=== PATIENT | female | born 1975 | race Caucasian/White ===

== ENCOUNTER → 2023-12-25 07:26 | Outpatient (REF) | payer OTHER, SELFPAY | LOC: WDC 07:26 | PROVIDERS: ATTENDING PHYSICIAN Nurse Practitioner | DX: Z12.31 Encounter for screening mammogram for malignant neoplasm of breast (principal) | CPT/HCPCS: 77063; 77067 ==

== ENCOUNTER → 2024-02-05 12:56 | Outpatient (REF) | payer OTHER, SELFPAY | LOC: WDC 12:56 | PROVIDERS: ATTENDING PHYSICIAN Internal Medicine; FAMILY PHYSICIAN Nurse Practitioner | DX: R92.2 Inconclusive mammogram (principal); R92.30 Dense breasts, unspecified | CPT/HCPCS: 76641 ==

== ENCOUNTER 2024-07-15 05:52 | Day surgery (SDC) | payer OTHER, SELFPAY ==
[2024-07-14 21:44] VITALS: BP 148/80
[2024-07-14 22:06] LABS: % Basophils 0.6 % (0-2); % Eosinophils 1.8 % (0-6); % Immature Granulocytes 0.5 % (0-0.5); % Lymphocytes 13.5 % (20.5-51.1); % Monocytes 5.2 % (1.7-9.3); % Neutrophils 78.4 % (42.2-75.2); Absolute Basophils 0.1 10^3/uL (0-0.2); Absolute Eosinophils 0.4 10^3/uL (0-0.7); Absolute Immature Granulocytes 0.1 10^3/uL (0-0.05); Absolute Lymphocytes 2.7 10^3/uL (1.2-3.4); Absolute Neutrophils 15.4 10^3/uL (1.4-6.5); Hematocrit 41.4 % (37.0-47.0); Mean Corp Hgb Conc. 33.8 g/dL (33.0-37.0); Mean Corpuscular Hgb 28.9 pg (27.0-31.0); Mean Corpuscular Volume 85.4 fL (81.0-99.0); Mean Platelet Volume 8.9 fL (7.4-10.4); Nucleated Red Blood Cells % 0 %; Platelet Count 322 10^3/uL (130-400); Red Blood Cell Count 4.85 10^6/uL (4.20-5.40); White Blood Cell Count 19.6 10^3/uL (4.8-10.8)
[2024-07-14 22:22] LABS: ALT (SGPT) 46 U/L (0-35); AST (SGOT) 40 U/L (14-36); Albumin 4.4 g/dl (3.5-5.0); Alkaline Phosphatase 80 U/L (38-126); Blood Urea Nitrogen 15 mg/dl (7-17); Carbon Dioxide 29 mmol/L (22-30); Chloride 98 mmol/L (98-107); Glucose 118 mg/dl (70-99); Potassium 3.8 mmol/L (3.5-5.1); Sodium 137 mmol/L (135-145); Total Bilirubin 0.4 mg/dl (0.2-1.3); Total Protein 6.9 g/dl (6.3-8.2); eGFR > 60.00
[2024-07-15] VITALS (12 sets, daily range): BP systolic 108–139; BP diastolic 59–83; BMI 33.8
--- NOTE | 2024-07-15 00:14 | ED.GENMED ---
History of Present Illness
General
Chief Complaint: Abdominal Pain
Source: patient
Time Seen by Provider: 07/14/24 23:37
History of Present Illness
History of Present Illness:
48-year-old female presents to the emergency room complaining of abdominal pain. The pain is located in her lower abdomen. It started this evening. Patient feels like it started fairly suddenly. She had taken the doxycycline earlier which was
prescribed for sinusitis. Patient has had nasal congestion, malaise for the past several days. She was negative for COVID and flu and therefore her doctor prescribed this antibiotic for suspected sinusitis. Patient denies any diarrhea or
constipation. She is nauseous but has not vomited. She has had a cholecystectomy in the past.
Past History
Past History
ED Past Medical History: Psychiatric (depression) and Other (Known gallstones)
ED Past Surgical History: Cholecystectomy
Social History
Tobacco: Non-smoker
Alcohol: Occasional
Drug: None
Personal:
Living: with family
Employment: Employed
Family History
Family History: Other (Noncontributory)
Phy Exam
Physical Exam
Physical Exam:
General: Awake, Alert, Oriented X3. No acute distress.
Vitals: unremarkable
Head: Atraumatic
Eyes: Pupils equal, EOMI
Throat: Airway intact, no exudates
Neck: Trachea midline
Lungs: Clear and equal b/l
Heart: Regular rate, no murmurs
Abd: Soft, tenderness to palpation lower abdomen, no pulsatile mass
Neuro: Nonfocal
Skin: Warm, dry, no rash
Extremities: pulses equal b/l, no edema
Course
Orders/Labs/Results
Orders:
Orders
07/14/24 21:57
CMP [Comprehensive Metabolic Panel] Urgent
Complete Blood Count/With Diff Urgent
07/15/24 00:13
0.9% Sodium Chloride 1000 ml [Nss] 1,000 ml IV BOLUS
Ketorolac [Toradol] 15 mg IV NOW STA
07/15/24 00:14
CT Abd/Pel (IV only)-DH only Urgent
Comment:
Reason For Exam: lower abd pain
07/15/24 00:20
Urinalysis Reflex To Culture Urgent
Date Specimen was Collected: 07/15/24
Time Specimen was Collected: 00:16
Urine Microscopic Reflex Cult Urgent
Urine Culture Urgent
MING Source: U
Specimen Description:
Date Specimen was Collected: 07/15/24
Time Specimen was Collected: 00:16
07/15/24 03:21
CefTRIAXone [Rocephin] 1,000 mg IV NOW STA
MetroNIDAZOLE 500 MG/100 ML [Flagyl 500 mg] 100 ml IV NOW
07/15/24 03:44
Sterile Water [Sterile Water For Injection] 10 ml .ROUTE .STK-MED ONE
07/15/24 05:20
Admit/Transfer Patient As Directed
Co-Sign Provider:
Level of Care: Inpatient admission
Assign to:: Medical/Surgical
Physician / Group: Surgical services/Dr. Yanez
Diagnosis: Acute Appendicitis
Reason for Hospitalization: Acute appendicitis
Expected length of stay greater than two midnights?: Yes
ELOS- Estimated Length of Stay in days: 2
I certify the patient meets the requirements for IP care: Yes
07/15/24 05:21
Code Status As Directed
Resuscitation Status: Full Code
07/15/24 05:41
PRN Pain Medication Management As Directed
May give lesser potent ordered pain med per pt: Yes
preference::
Protocol:: Medication orders for pain may be administered in a
manner that supports deferring to patient preference
when the pt is:
- Requesting an ordered lesser potent pain medication.
Least to most potent pain medications are defined
as: acetaminophen < NSAID < tramadol < opioids
(morphine, oxycodone, hydromorphone).
- Requesting a lesser dose of the same medication IF
ORDERED.
- Requesting a less intrusive route of administration
if both routes are prescribed by the provider (PO <
IV).
07/15/24 05:46
Morphine Sulfate 2 mg IV Q2HPRN PRN
07/15/24 06:00
Flush (0.9% Sodium Chloride) [Flush (Nss)] See Dose Instructions IV PER PROTOCOL
Abnormal Lab Results
07/14/24 07/15/24
21:57 00:20
WBC 19.6 H 10^3/uL
(4.8-10.8)
Abs Immat Gran (auto) 0.1 H 10^3/uL
(0-0.05)
Absolute Neuts (auto) 15.4 H 10^3/uL
(1.4-6.5)
Absolute Monos (auto) 1.0 H 10^3/uL
(0.1-0.6)
Neutrophils % 78.4 H %
(42.2-75.2)
Lymphocytes % 13.5 L %
(20.5-51.1)
Glucose 118 H mg/dl
(70-99)
AST 40 H U/L
(14-36)
ALT 46 H U/L
(0-35)
Ur Occult Blood Reflex Trace A
(Negative)
Urine RBC 3-6 A /HPF
(0-2)
Urine Bacteria (Reflex) Moderate A
(Negative)
07/14/24 21:57
07/14/24 21:57
Vital Signs
Initial and Last Documented VS:
Initial Vital Signs
Temp Pulse Resp BP Pulse Ox
98 F 86 24 148/80 99
07/14/24 21:44 07/14/24 21:44 07/14/24 21:44 07/14/24 21:44 07/14/24 21:44
Last Documented Vital Signs
Temp Pulse Resp BP Pulse Ox
98 F 86 16 120/74 96
07/14/24 21:44 07/15/24 05:45 07/15/24 05:45 07/15/24 05:45 07/15/24 05:45
MDM/Problems Addressed
Differential Diagnosis Includes:
Acute appendicitis, kidney stone, diverticulitis
MDM/Problems Addressed:
Patient presents with abdominal pain. Workup shows significantly elevated white blood cell count at 19.6. AST and ALT are mildly elevated. CT shows acute appendicitis. There is also some stranding about the cecum which may be related to the
appendicitis or could represent neoplasm. Patient will be admitted to surgery. Antibiotics initiated. Given patient's allergy to penicillin we started ceftriaxone and Flagyl.
*Radiology
Radiology exam reviewed: radiology read reviewed
*Pulse Oximetry
Patient hypoxic: no
*Critical Care Note
Total Time (30-74mins, 75-104mins- exclusive of procedures): Not Applicable
ED Attending Note
-
Portions of this chart may have been created with voice recognition software.� Occasional wrong word or��sound alike� substitutions may have occurred due to the inherent limitations of voice recognition software.
Discharge Plan
Departure
Patient Disposition: Admit
Date of Disposition: 07/15/24
Time of Disposition: 03:23
Admit to: Med/Surg
Presentation/result/management discussed w/ accepting MD/DO: Hospitalist
Condition: Fair
Discharge Problem:
Appendicitis
Interventions
Interventions:
*Risk Screen - Suicide Last Done: 07/14/24 21:44
*General Assessment Last Done: 07/15/24 00:00
*Neglect/Abuse Screening Last Done: 07/14/24 21:44
ED- Fall Risk Assessment Last Done: 07/15/24 00:00
*ED COVID-19 Vaccine History Last Done: 07/15/24 00:00
KH-Gijtpx-Tnymecgedt Assessment Last Done: 07/15/24 00:00
ED-EENT Assessment Last Done: 07/15/24 00:00
ED- Pulmonary Assessment Last Done: 07/15/24 00:00
ED-Skin Assessment Last Done: 07/15/24 00:00
[2024-07-15] MEDS: NSS 1000 IV ×3 (00:26→20:32)
[2024-07-15] MEDS: TORADOL 15 MG IV (00:26)
[2024-07-15 00:36] LABS: Urine Albumin Negative (Neg - Trace); Urine Bilirubin Negative (Negative); Urine Character Clear (Clear); Urine Color Yellow; Urine Glucose Negative (Negative); Urine Ketone Negative (Negative); Urine Leukocyte Negative (Negative); Urine Nitrite Negative (Negative); Urine Occult Blood Trace (Negative); Urine Urobilinogen Negative (Neg - 1+)
[2024-07-15 02:00] LABS: Urine Bacteria Moderate (Negative); Urine Squamous Cell >30 /LPF (Few); Urine White Cell 0-2 /HPF (0-5)
[2024-07-15 02:01] LABS: Urine Mucus Many
--- NOTE | 2024-07-15 02:39 | EDRN ---
Dr. Zhang in to go over results with patient and plan to be admitted to the hospital
[2024-07-15] MEDS: ROCEPHIN 1000 MG IV (03:45)
[2024-07-15] MEDS: FLAGYL 500 MG 100 IV ×3 (03:45→20:32)
--- NOTE | 2024-07-15 04:52 | HPS.HSE ---
Addendum entered and electronically signed by Cruzito Yanez MD 07/15/24 08:06:
Patient seen and examined. See separate note for details; this note should be converted to a history and physical. Plan for laparoscopic appendectomy.
Original Note:
Family Physician
-
Family Physician: Carol Hemphill
Chief Complaint
-
Abdominal pain
History of Present Illness
Patient is a 48-year-old female presents to the emergency room complaining of lower abdominal pain. It started this evening, after dinner around 18:30. Patient feels like it started fairly suddenly. She had taken the doxycycline earlier which was
prescribed for sinusitis. Patient has had nasal congestion, malaise for the past several days. She went to an Urgent care, was negative for COVID and flu and therefore her doctor prescribed this antibiotic for suspected sinusitis. Patient denies
any diarrhea or constipation. She is nauseous but has not vomited. She has had a cholecystectomy in the past.
In the emergency department, labs showed leukocytosis, WBC 19.6, BMP unremarkable. UA showed trace occult blood reflex and moderate bacteria.Patient received 1L NSS bolus, and was started on IV antibiotics Ceftriaxone 1 g IV x 1 and metronidazole
500 mg IV x [address]/Pelvis (IV only)
Radiology exam reviewed: radiology read reviewed (CT night hawk) -
Moderate wall thickeining of the base of appedix and the adjacent cecum, which may represent an acute appendicitis. The cecal wall thickening may be reactive to the appendicitis. Cannot exclude an dunderlying mass or cecal colitis. There is a small
amount of surrounding fat stranding. No free air or abscess. May consider follow up with GI to exclude an underlying cecal pathology.
Patient is being admitted to Surgical Services, Dr. Yanez.
Medical History
Past Medical History
Past Medical History: Reports Psychiatric (Depression) and Other (Gallstones)
Past Surgical History: Reports Cholecystectomy (03/2013) and Gynocological (Hysterectomy, 04/2022)
Social History
Tobacco: Non-smoker
Alcohol: None
Drug: None
Personal:
Living: With Family
Employment: Employed
Family History
Family History: Other (Noncontributory)
Allergies / Home Medications
Allergies reflects when Allergies were last updated in [facility].
Home Medications with original date entered in [facility]
Allergy/Medication List:
Patient Allergies
Allergy/AdvReac Type Severity Reaction Status Date / Time
Penicillins Allergy Unknown Verified 07/14/24 21:47
Home Medications
�Medication �Instructions �Recorded
escitalopram oxalate 10 mg tablet 10 mg PO DAILY 07/15/24
(Lexapro)
Review of Systems
-
History Source: Patient
EENT: Reports No Symptoms
Respiratory: Reports No Symptoms
Cardiac: Reports No Symptoms
Abdomen/GI: Reports Abdominal Pain (lower abdominal pain) and Nausea
: Reports No Symptoms
Musculoskeletal: Reports No Symptoms
Skin: Reports No Symptoms
Neurological: Reports No Symptoms
Psych: Reports Calm
Physical Exam
Vital Signs
Vital Signs
Temp Pulse Resp BP Pulse Ox
98 F 98 16 139/80 98
07/14/24 21:44 07/15/24 00:00 07/15/24 00:00 07/15/24 00:00 07/15/24 00:00
Physical Exam
General: Well Developed, Well Nourished and Appears in Distress (mild distress)
HEENT: NormoCephalic and PERRLA
Respiratory: Clear
Cardiac: S1/S2 and Regular Rhythm; No Murmur
GI: Soft and Tender (right lower quadrant pain)
Skin: Warm and Dry; No Rash or Jaundice
Neuro: AO x 3
Psych: Calm
Laboratory Results
-
07/14/24 21:57
07/14/24 21:57
Laboratory Results
Total Bilirubin 0.4 mg/dl (0.2-1.3) 07/14/24 21:57
AST 40 U/L (14-36) H 07/14/24 21:57
ALT 46 U/L (0-35) H 07/14/24 21:57
Alkaline Phosphatase 80 U/L (38-126) 07/14/24 21:57
Data Reviewed
-
CT Scan: Report Reviewed by me
Lab Data: Labs Reviewed by me and Discussed with Physician
Impression/Plan
-
IMPRESSION:
Patient is a 48-year-old female presents to the emergency room complaining of lower abdominal pain.
PLAN:
Acute Appendicitis/
Abdominal pain
-Admit to surgical services, accepted by Dr. Yanez
-Patient started on IV antibiotics: Metronidazole 500 mg IV and Ceftriaxone 1 g IV
-Pain medication: Ordered Morphine
-Zofran for nausea/vomiting
-NPO, IV fluids ordered
PMHx:
Anxiety - Lexapro
DVT Prophylaxis: SCD's
Code status: Full code
[2024-07-15] MEDS: MORPHINE SULFATE 2 MG IV ×2 (05:48→09:53)
--- NOTE | 2024-07-15 07:14 | PTCARENOTE ---
PT a 48 y/o F dx Acute Appendicitis arrived from ED at 06:38 to 2S. PMH Umbical Hernia (repaired 2012), Gallstones ([place] 2012), Impaired vision, Psoriasis, Covid, Depression & pt had Hysterectomy in 2021. Pt AOx3, bed in a low position, call
light in reach.
--- NOTE | 2024-07-15 07:58 | CON.GS ---
Addendum entered and electronically signed by Cruzito Yanez MD 07/15/24 08:07:
Of note, patient has had a prodromal symptom of a URI which prompted evaluation at a urgent care several days ago. She is currently on doxycycline for treatment of potential sinusitis.
Original Note:
Medical History
-
Chief Complaint: Abdominal pain
History of Present Illness:
Patient is a 48 yo F with a PMH of depression/anxiety, obesity, s/p laparoscopic cholecystectomy and open primary umbilical hernia repair and s/p hysterectomy who presents with 12 to 24 hours of RLQ abdominal pain. Ms. Hernandez states that her
abdominal discomfort began yesterday evening. Acute onset of pain which worsened throughout the evening prompting presentation to the ED. No fevers or chills. No nausea or vomiting. No significant fluctuations in bowel habits including mucousy
or bloody stools. She denies any chronic GI issues. No personal or family history of IBD or colon cancer. She has had a colonoscopy 2 years ago at [facility] which was reportedly normal. Currently she notes mild improvement but still
continues with RLQ abdominal pain.
Past Medical History
Past Medical History: Psychiatric (Depression/anxiety)
Past Surgical History: Cholecystectomy and Gynecological (Hysterectomy)
Social History
Tobacco: Non-Smoker
Alcohol: None
Drug: None
Personal:
Living: With Family
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
Family History
Family History: Reviewed & Noncontributory
Allergies / Home Medications
Allergy/AdvReac Type Severity Reaction Status Date / Time
Penicillins Allergy Unknown Verified 07/14/24 21:47
�Medication �Instructions �Recorded �Confirmed �Type
escitalopram oxalate 10 mg tablet 10 mg PO DAILY 07/15/24 07/15/24 History
(Lexapro)
Review of Systems
-
A 10 point review of systems was completed, and was negative except as per HPI.
Physical Exam
Vital Signs
Temp Pulse Resp BP Pulse Ox
98.3 F 81 16 113/70 95
07/15/24 07:40 07/15/24 07:40 07/15/24 07:40 07/15/24 07:40 07/15/24 07:40
07/14/24 07/15/24 07/16/24
06:59 06:59 06:59
Actual Weight 95 kg
Body Mass Index (BMI) 33.8
Lab Results
WBC 19.6 10^3/uL (4.8-10.8) H 07/14/24 21:57
Hgb 14.0 g/dL (12.0-16.0) 07/14/24 21:57
Hct 41.4 % (37.0-47.0) 07/14/24 21:57
Plt Count 322 10^3/uL (130-400) 07/14/24 21:57
Abs Immat Gran (auto) 0.1 10^3/uL (0-0.05) H 07/14/24 21:57
Neutrophils % 78.4 % (42.2-75.2) H 07/14/24 21:57
Physical Exam
General: Well Developed, Well Nourished and No Apparent Distress
HEENT: Normocephalic and Anicteric
Respiratory: Non Labored Respirations
Cardiac: Regular Rhythm
GI: Soft, Non Distended, Tender (RLQ and suprapubic region), Obese and Other (No diffuse peritonitis)
Musculoskeletal: No Edema
Skin: Warm and Dry
Neuro: Nonfocal/Grossly Intact
Data Reviewed
-
CT Scan: Image Personally Visualized and interpreted
Labs: Labs Reviewed by me
Old Records: Reviewed
Assessment / Plan
-
Patient is a 48 yo F p/w acute appendicitis
The natural history and pathophysiology of appendicitis was discussed. Anatomy was reviewed. CT scan imaging as a relates to her appendix was reviewed. Specifically, we discussed the radiographic findings of a more thickened colon and TI which
may complicate her surgery. Options for management including medical management with antibiotics versus surgical management with appendectomy were considered and discussed. The pros and cons of both approaches was discussed. Specifically, we
discussed failure of medical management of future episodes of appendicitis versus surgical risks. Patient would like to proceed with appendectomy.
Plan for a laparoscopic possible open appendectomy. The procedure itself, as well as the risks, benefits, and alternatives was discussed. Specifically, we discussed the risks of bleeding, infection, injury to surrounding structures, need for a
partial seek ectomy or potentially open procedure, and general anesthetic complications. Typical postprocedure recovery was discussed. All questions answered. Consent signed.
-- Laparoscopic appendectomy
-- NPO, IVF
-- Abx: Levo, Falgyl
-- pain control: Tylenol and IV Morphine PRN
--- NOTE | 2024-07-15 08:06 | W.SUR.PREOP ---
Pre-Operative Surgical Note
-
I have examined this patient prior to the performance of the scheduled procedure.
The patient's condition is unchanged from the time of the current History and
Physical and the patient is able to undergo the scheduled procedure.
[2024-07-15] MEDS: LEXAPRO 10 MG PO (08:16)
[2024-07-15] MEDS: TYLENOL 650 MG PO ×3 (08:16→20:34)
[2024-07-15] MEDS: LEVAQUIN 100 IV (08:17)
[2024-07-15 09:46] LABS: Hematocrit 36.5 % (37.0-47.0); Hemoglobin 12.7 g/dL (12.0-16.0); Mean Corp Hgb Conc. 34.8 g/dL (33.0-37.0); Mean Corpuscular Hgb 29.5 pg (27.0-31.0); Mean Corpuscular Volume 84.9 fL (81.0-99.0); Mean Platelet Volume 9.2 fL (7.4-10.4); Platelet Count 276 10^3/uL (130-400)
[2024-07-15 10:04] LABS: Blood Urea Nitrogen 11 mg/dl (7-17); Calcium 8.4 mg/dl (8.4-10.2); Carbon Dioxide 27 mmol/L (22-30); Chloride 102 mmol/L (98-107); Estimated Creatinine Clearance > 125 ml/min; Glucose 101 mg/dl (70-99); Potassium 3.6 mmol/L (3.5-5.1); Sodium 138 mmol/L (135-145); eGFR > 60.00
--- NOTE | 2024-07-15 11:18 | CM ---
Met with pt and her at bedside
Pt reports she lives with her and 2 daughters (ages - 12 & 15) in a 2 story home;2 steps to enter, 12 steps to 2nd fl. + 1/2 bath on FF
Independent, active, drives
DME - none
SNF/HH - no past hx
Has ride at discharge
PCP - Carol Hemphill
Pharm - [facility] - [place]
Pharm - anticipate home no needs when medically ready
[2024-07-15] MEDS: TYLENOL PO ×2 (11:51→23:58)
--- NOTE | 2024-07-15 13:51 | W.IMMPOSTOP ---
Surgical Immed Post Op Note
-
Primary Surgeon: Beau
Assisting Surgeon: KAVON Bryant
Pre-op Diagnosis: Acute appendicitis
Post-op Diagnosis: Acute appendicitis
Procedure Performed: Laparoscopic appendectomy
Anesthesia Type: General
Specimen / Cultures:
1. Appendix
Estimated Blood Loss: 7 cc
Complications: None
Operative Findings:
1. Dilated and inflamed appendix without evidence of perforation, turbid reactive fluid
2. Palpable firmness within cecum, no clear cancerous mass
3. Mesentery taken with Voyant, base with purple load stapler with small portion of cecum (staple line intact)
[2024-07-15] MEDS: SUBLIMAZE 50 MCG IV (14:49)
--- NOTE | 2024-07-15 15:09 | PTCARENOTE ---
Patient returned to her room from the PACU post laparoscopic appendectomy.She reports her pain at a 6 out of 10.She received pain medication right before she came back to her room.Vital signs are stable. All incisions are open to air without
drainage.The patient is in her bed with the call flores in reach.Her is at the bedside.
[2024-07-15] MEDS: LOVENOX 40 MG SC (17:15)
[2024-07-15] MEDS: ROXICODONE 5 MG PO (20:33)
--- NOTE | 2024-07-16 02:17 | DOWNTIME ---
There was a [employer] Downtime on 07/16/2024 from 0100 to 07/16/2023 at 0205 . Downtime documentation of patient's care, including medication administrations, has been reconciled in the electronic record per guidelines. Refer to the
patient's paper chart under the miscellaneous tab to see printed paper medication records and downtime forms.
[2024-07-16] MEDS: TYLENOL 650 MG PO ×2 (05:20→08:16)
[2024-07-16] MEDS: FLAGYL 500 MG 100 IV (05:20)
[2024-07-16 07:09] VITALS: BP 127/83
[2024-07-16] MEDS: LEXAPRO 10 MG PO (08:18)
[2024-07-16] MEDS: LEVAQUIN 100 IV (08:19)
[2024-07-16] MEDS: TORADOL 10 MG IV (08:26)
[2024-07-16 08:47] LABS: ALT (SGPT) 91 U/L (0-35); AST (SGOT) 67 U/L (14-36); Albumin 3.4 g/dl (3.5-5.0); Alkaline Phosphatase 104 U/L (38-126); Blood Urea Nitrogen 9 mg/dl (7-17); Calcium 8.4 mg/dl (8.4-10.2); Carbon Dioxide 26 mmol/L (22-30); Chloride 103 mmol/L (98-107); Estimated Creatinine Clearance > 125 ml/min; Glucose 113 mg/dl (70-99); Potassium 3.7 mmol/L (3.5-5.1); Sodium 135 mmol/L (135-145); Total Bilirubin 0.5 mg/dl (0.2-1.3); Total Protein 5.8 g/dl (6.3-8.2); eGFR > 60.00
--- NOTE | 2024-07-16 10:27 | CM ---
Chart reviewed. Met with pt
Poss d/c later today per pt
Has ride at discharge
Plan - anticipate home no needs
[2024-07-16 11:22] VITALS: BP 136/83
[2024-07-16] MEDS: NSS IV (11:36)
--- NOTE | 2024-07-16 11:39 | W.PN.GS2 ---
Today's Communication / Plan
-
-- DC today if tolerating diet
Assessment / Plan
-
Patient is a 48 yo F p/w acute appendicitis POD#1 s/p laparoscopic appendectomy
AVSS
Recovering well. No postoperative concerns. Operative findings reviewed, will need to follow-up on pathology.
-- Regular diet
-- Pain control: Tylenol, Toradol, Oxycodone
-- Abx: Zosyn, plan for 4 days abx (Cipro/Flagyl on DC)
-- Home meds
-- DVT: Lovenox
-- DC today
Subjective Data
-
Date of Service: July 16, 2024
Pain well-controlled. Tolerating a diet. No nausea or vomiting. Passing flatus. No fevers or chills.
Objective Data
-
Intake and Output
07/15/24 07/16/24 07/17/24
06:59 06:59 06:59
Intake Total 2320 / 2320
Balance 2320 / 2320
Intake:
Oral fluids 1020 / 1020
IV fluids (Total) 900 / 900
IV piggybacks 400 / 400
Other:
Number of approximated MODERATE 2
amounts of urine
Number of approximated LARGE 1
amounts of urine
Vital Signs
Temp Pulse Resp BP Pulse Ox
97.7 F 91 18 136/83 96
07/16/24 11:22 07/16/24 11:22 07/16/24 11:22 07/16/24 11:22 07/16/24 11:22
Lab Results
07/15/24 09:30
07/16/24 06:35
Calcium 8.4 mg/dl (8.4-10.2) 07/16/24 06:35
Total Bilirubin 0.5 mg/dl (0.2-1.3) 07/16/24 06:35
AST 67 U/L (14-36) H 07/16/24 06:35
ALT 91 U/L (0-35) H 07/16/24 06:35
Alkaline Phosphatase 104 U/L (38-126) 07/16/24 06:35
Total Protein 5.8 g/dl (6.3-8.2) L 07/16/24 06:35
Albumin 3.4 g/dl (3.5-5.0) L 07/16/24 06:35
Physical Exam
-
Gen: NAD
Abd: soft, NT/ND, non-peritoneal, incisions c/d/i - no erythema, ecchymosis or drainage
Patient has a lauren catheter: No
Patient has a central line: No
== END 2024-07-16 12:47 | disposition home or self-care (01) ==
LOC: SDS 05:52
PROVIDERS: Emergency Medicine; Nurse Practitioner Family; ATTENDING PHYSICIAN Surgery; EMERGENCY PHYSICIAN Emergency Medicine; FAMILY PHYSICIAN Internal Medicine
DX: K35.80 Unspecified acute appendicitis (principal)
CPT/HCPCS: 44970; 88304; 74177; 80048; 80053; 81003; 81015; 85025; 85027; 87086; 96361; 96365; 96375; 99285; C1776; Q9967

== ENCOUNTER → 2025-02-09 19:30 | Outpatient (REF) | payer OTHER, SELFPAY | LOC: WDC 19:30 | PROVIDERS: ATTENDING PHYSICIAN Nurse Practitioner | DX: Z12.31 Encounter for screening mammogram for malignant neoplasm of breast (principal); R92.30 Dense breasts, unspecified | CPT/HCPCS: 77063; 77067 ==